=== PATIENT | male | born 1960 | race Caucasian/White ===

== ENCOUNTER 2018-11-20 09:46 | Day surgery (SDC) | payer OTHER ==
[2018-11-20] MEDS ORDERED: PROPOFOL 40 ML (12:18)
== END 2018-11-20 15:42 | disposition home or self-care (01) ==
LOC: GIL 09:46
DX: Z12.11 Encounter for screening for malignant neoplasm of colon (principal); K64.8 Other hemorrhoids
CPT/HCPCS: 45378